=== PATIENT | male | born 1985 | race African-American/Black ===

== ENCOUNTER 2019-04-16 14:34 | Emergency (ER) | payer OTHER ==
[~2019-04-16] VITALS: Ht 182.9 cm; Wt 90.7 kg
[2019-04-16] MEDS ORDERED: NOHOMEMEDICATIONS (14:39)
[2019-04-16 18:16] VITALS: BP 127/79
== END 2019-04-16 18:16 | disposition home or self-care (01) ==
LOC: ER 14:34
DX: S61.411A Laceration without foreign body of right hand, initial encounter (principal); S01.21XA Laceration without foreign body of nose, initial encounter; Z88.6 Allergy status to analgesic agent; Y04.8XXA Assault by other bodily force, initial encounter; Y93.89 Activity, other specified; Y92.89 Other specified places as the place of occurrence of the external cause; Y99.8 Other external cause status